=== PATIENT | male | born 1960 | race Caucasian/White ===

== ENCOUNTER 2018-11-25 16:41 | Outpatient (CLI) | payer BC ==
--- NOTE | 2018-11-25 17:15 | RAD ---
LEFT SHOULDER 3 VIEWS: Date: 11/25/18 INDICATION: Pain. FINDINGS: There is moderate osteoarthritis without fracture or dislocation. Imaged left lung is grossly clear. IMPRESSION: 1. No acute osseous abnormality of left shoulder. 2. Moderate osteoarthritis. POS: [facility]
== END 2018-11-25 16:42 | disposition home or self-care (01) ==
LOC: RAD-FRANK 16:41
PROVIDERS: ATTEND Nurse Practitioner Family
DX: M25.512 Pain in left shoulder (principal); M19.012 Primary osteoarthritis, left shoulder